=== PATIENT | male | born 1960 | race Caucasian/White ===

== ENCOUNTER 2017-03-20 20:39 | Inpatient (IN) | payer MEDICARE, OTHER ==
[~2017-03-20] VITALS: Ht 182.9 cm; Wt 127.0 kg
[2017-03-20 21:19] LABS: BASOPHILS 0.2 % (0-2); EOSINOPHILS 1.2 % (0-7); HEMATOCRIT 45.2 % (42.0-54.0); HEMOGLOBIN 15.7 g/dL (13.5-17.5); IMMATURE GRANULOCYTES 0.2 % (0-5); LYMPHOCYTES 15.7 % (15-50); MCH 30.5 pg (26.0-34.0); MCHC 34.7 g/dL (31.0-37.0); MCV 87.8 fL (80.0-100.0); MEAN PLATELET VOLUME 10.8 fL (7.4-10.4); MONOCYTES 6.6 % (2-11); NEUTROPHILS 76.1 % (40-80); PLATELET COUNT 228 10x3/uL (130-400); RBC 5.15 10x6/uL (4.20-6.10); RDW 12.7 % (11.5-14.5)
[2017-03-20 21:46] LABS: ALBUMIN 3.9 g/dL (3.4-5.0); BILIRUBIN - TOTAL 0.53 mg/dL (0.2-1.3); CALCIUM 9.2 mg/dL (8.5-10.1); CARBON DIOXIDE 26.5 mmol/L (21.0-32.0); CREATININE - SERUM 1.4 mg/dL (0.6-1.3); POTASSIUM - SERUM 3.5 mmol/L (3.5-5.1); PROTEIN - SERUM 8.3 g/dL (6.4-8.2)
--- NOTE | 2017-03-21 02:51 | NUR ---
REC'D FROM ER DEPT PER WC TO ROOM 2218 A 56 Y/O W/M PER SERVICES DR. PLATT WITH DX. PANCREATITIS NKDA. ALERT/ORIENTED X3 SALINE LOCK PATENT LEFT HAND. UP AD PHYLLIS TO BR VOIDS IN URINAL. SR UP X2 CALL LIGHT WITHIN REACH.
[2017-03-21 03:21] VITALS: BP 140/90; BMI 38.0
[2017-03-21] MEDS ORDERED: ZESTRIL20 MG PO (04:07)
[2017-03-21] MEDS ORDERED: BUSPAR10 MG PO (04:09)
[2017-03-21] MEDS ORDERED: CYMBALTA60 MG PO (04:09)
[2017-03-21] MEDS ORDERED: MOBIC7.5 MG PO (04:10)
[2017-03-21] MEDS ORDERED: ABILIFY10 MG PO (04:13)
[2017-03-21] MEDS ORDERED: VIAGRA100 MG PO (04:13)
[2017-03-21] MEDS ORDERED: REMERON15 MG PO (04:14)
[2017-03-21] MEDS ORDERED: SINEQUAN50 MG PO (04:14)
[2017-03-21] MEDS ORDERED: AMBIEN10 MG PO (04:15)
--- NOTE | 2017-03-21 04:34 | NUR ---
IV FLUIDS OF NS AT 150CC'S/HR C/O ABDOMINAL PAIN RATES PAIN LEVEL #8. DILAUDID 1MG IVP GIVEN FOR PAIN CONTROL.
--- NOTE | 2017-03-21 06:39 | NUR ---
RESTING QUIETLY DENIES NEEDS.
--- NOTE | 2017-03-21 08:00 | NUR ---
ASSESSMENT PER FLOW SHEET.PT WITHOUT DISTRESS AND DENIES NEEDS AT PRESENT.FAMILY IS AT BEDSIDE.CALL LIGHT IN REACH.
[2017-03-21 08:37] VITALS: BP 125/75
[2017-03-21] MEDS ORDERED: MELATONIN5 MG PO (10:10)
[2017-03-21 10:33] VITALS: Ht 182.9 cm; Wt 127.0 kg
[2017-03-21 10:44] LABS: BASOPHILS 0.1 % (0-2); HEMATOCRIT 41.5 % (42.0-54.0); HEMOGLOBIN 14.3 g/dL (13.5-17.5); IMMATURE GRANULOCYTES 0.2 % (0-5); LYMPHOCYTES 9.1 % (15-50); MCH 30.6 pg (26.0-34.0); MCHC 34.5 g/dL (31.0-37.0); MCV 88.7 fL (80.0-100.0); MEAN PLATELET VOLUME 10.1 fL (7.4-10.4); MONOCYTES 5.6 % (2-11); PLATELET COUNT 187 10x3/uL (130-400); RBC 4.68 10x6/uL (4.20-6.10); RDW 12.9 % (11.5-14.5); WBC 10.5 10x3/uL (4.8-10.8)
[2017-03-21 11:09] LABS: ALBUMIN 3.5 g/dL (3.4-5.0); ANION GAP 12.1 mmol/L (8-16); BILIRUBIN - TOTAL 0.6 mg/dL (0.2-1.3); CALCIUM 8.4 mg/dL (8.5-10.1); CARBON DIOXIDE 24.8 mmol/L (21.0-32.0); CREATININE - SERUM 1.2 mg/dL (0.6-1.3); POTASSIUM - SERUM 3.9 mmol/L (3.5-5.1); PROTEIN - SERUM 7.2 g/dL (6.4-8.2)
[2017-03-21 11:35] LABS: CHOL - HDL RATIO 4.6 ratio (2.3-4.9); LDL-HDL RATIO 3.2 ratio (1.5-3.5)
[2017-03-21 12:56] VITALS: BP 142/86
--- NOTE | 2017-03-21 13:55 | NUR ---
PAIN MEDS ORDERED PER SCALE TO ABDOMEN.MONITOR
--- NOTE | 2017-03-21 15:23 | NUR ---
PT UP IN ROOM AMBULATING. HE STATES HIS PAIN FEELS BETTER AND IS UP WALKING AROUND. MONITOR
--- NOTE | 2017-03-21 16:33 | NUR ---
REMAINS WITHOUT NEEDS,WITHOUT CHANGE.CONT PLAN OF CARE
[2017-03-21 16:48] VITALS: BP 126/81
--- NOTE | 2017-03-21 20:00 | NUR ---
ASSESSMENT PER FLOWSHEET. PT REMAINS NPO. IV PATENT LEFT HAND OF NS AT 150CC'S/HR. SITE CLEAR. UP AD PHYLLIS TO BR VOIDS WELL.
[2017-03-21 20:50] VITALS: BP 144/72
--- NOTE | 2017-03-21 22:00 | NUR ---
RESTING IN BED WITH PT'S OWN CPAP IN USE.
--- NOTE | 2017-03-21 23:47 | NUR ---
EYES CLOSED RESPIRATIONS WITH EASE AND UNLABORED.
[2017-03-22] VITALS: BP 132/75
--- NOTE | 2017-03-22 02:54 | NUR ---
EYES CLOSED RESPIRATIONS WITH EASE AND UNLABORED. PT USING HOME CPAP.
[2017-03-22 04:00] VITALS: BP 92/59
[2017-03-22 05:39] LABS: BASOPHILS 0.1 % (0-2); EOSINOPHILS 1.6 % (0-7); HEMATOCRIT 39.5 % (42.0-54.0); HEMOGLOBIN 13.1 g/dL (13.5-17.5); IMMATURE GRANULOCYTES 0.2 % (0-5); LYMPHOCYTES 11.5 % (15-50); MCHC 33.2 g/dL (31.0-37.0); MCV 90.4 fL (80.0-100.0); MEAN PLATELET VOLUME 10.9 fL (7.4-10.4); MONOCYTES 5.8 % (2-11); NEUTROPHILS 80.8 % (40-80); PLATELET COUNT 180 10x3/uL (130-400); RBC 4.37 10x6/uL (4.20-6.10); WBC 8.1 10x3/uL (4.8-10.8)
[2017-03-22 06:03] LABS: ANION GAP 9.8 mmol/L (8-16); BILIRUBIN - TOTAL 1.04 mg/dL (0.2-1.3); CARBON DIOXIDE 28.3 mmol/L (21.0-32.0); CREATININE - SERUM 1.3 mg/dL (0.6-1.3); POTASSIUM - SERUM 4.1 mmol/L (3.5-5.1); PROTEIN - SERUM 6.7 g/dL (6.4-8.2)
--- NOTE | 2017-03-22 08:00 | NUR ---
ASSESSMENT PER FLOW SHEET.PT WITHOUT DISTRESS.STATES SOME PAIN THIS AM AFTER GETTING OUT OF BED.STATES PAIN BETTER AND DID NOT NEEDS PAIN MEDS DURING NIGHT.PAIN MEDS PER MAR PER PT REQUEST FOR PAIN IN ABDOMEN.
[2017-03-22 08:55] VITALS: BP 149/70
--- NOTE | 2017-03-22 12:35 | NUR ---
UP TO BATHROOM. STATES HAVING LARGE BM PER .PT DECLINES SUPPOSITORIES ORDERED
[2017-03-22 13:25] VITALS: BP 136/76
[2017-03-22 16:46] VITALS: BP 137/75
--- NOTE | 2017-03-22 18:03 | NUR ---
REMAINS WITHOUT NEEDS.PAIN MEDS PER PT REQUEST PER MAR.CONT PLAN OF CARE
[2017-03-22 20:00] VITALS: BP 120/66
[2017-03-23] VITALS: BP 138/76
--- NOTE | 2017-03-23 01:43 | NUR ---
PATIENT IS LAYING ON HIS LEFT SIDE, RESTING QUIETLY WITH EYES CLOSED. NO SIGNS OF DISTRESS NOTED. BED IN LOWEST POSITION, CALL LIGHT IN REACH. BED RIALS UP X'S 2.
[2017-03-23 04:00] VITALS: BP 101/64
[2017-03-23 05:22] LABS: BASOPHILS 0.1 % (0-2); EOSINOPHILS 2.7 % (0-7); HEMATOCRIT 36.5 % (42.0-54.0); HEMOGLOBIN 12.2 g/dL (13.5-17.5); IMMATURE GRANULOCYTES 0.1 % (0-5); LYMPHOCYTES 15.4 % (15-50); MCHC 33.4 g/dL (31.0-37.0); MCV 89.9 fL (80.0-100.0); MEAN PLATELET VOLUME 10.6 fL (7.4-10.4); MONOCYTES 8.4 % (2-11); NEUTROPHILS 73.3 % (40-80); PLATELET COUNT 192 10x3/uL (130-400); RBC 4.06 10x6/uL (4.20-6.10); RDW 12.7 % (11.5-14.5); WBC 8.2 10x3/uL (4.8-10.8)
[2017-03-23 05:54] LABS: ALBUMIN 2.9 g/dL (3.4-5.0); ANION GAP 10.4 mmol/L (8-16); CALCIUM 8.4 mg/dL (8.5-10.1); CARBON DIOXIDE 28.5 mmol/L (21.0-32.0); CREATININE - SERUM 1.2 mg/dL (0.6-1.3); POTASSIUM - SERUM 3.9 mmol/L (3.5-5.1); PROTEIN - SERUM 6.6 g/dL (6.4-8.2)
--- NOTE | 2017-03-23 06:02 | NUR ---
DOCTOR NOT NOTIFIED THAT THERE WAS A CRITICL HIGH AMYLASE OF 633. THIS NUMBER WAS A DECREASE FROM 969 YESTERDAY MORNING.
--- NOTE | 2017-03-23 07:59 | NUR ---
REC'D LYING IN BED. ALERT AND ORIENTED X4. REPORTED PAIN 4/10. WILL ADMIN PAIN MEDS PRESCRIBED. IS WANTING TO GO HOME TODAY. INSTRUCTED TO CALL IF NEEDED ANYTHING, VERBALIZED UNDERSTANDING. NO DISTRESS NOTED. WILL CONT TO MONITOR.
[2017-03-23 09:13] VITALS: BP 115/68
--- NOTE | 2017-03-23 10:00 | NUR ---
AMBULATING IN HALLWAY. DENIES ANY NEEDS AT THIS TIME.
--- NOTE | 2017-03-23 12:12 | NUR ---
DISCHARGED PATIENT. WENT OF DISCHARGE PAPERWORK VERBLAIZED UNDERSTANDING. TOLD WHEN TO SCHEDULE APPT, VERBALIZED UNDERSTANDING. DC'D IV TO LEFT HAND, CATHETER STILL INTACT. REFUSED TO GO DOWNSTAIRS IN A WHEELCHAIR.
== END 2017-03-23 12:14 | disposition home or self-care (01) | DRG 439 ==
LOC: D.ER 20:39 → D.MS 03-21 01:34
PROVIDERS: Family Medicine; Nurse Practitioner Family; ADMIT Family Medicine
DX: K85.90 Acute pancreatitis without necrosis or infection, unspecified (principal); N17.9 Acute kidney failure, unspecified; I10 Essential (primary) hypertension; F43.10 Post-traumatic stress disorder, unspecified; G47.33 Obstructive sleep apnea (adult) (pediatric); Z98.84 Bariatric surgery status; G62.9 Polyneuropathy, unspecified

== ENCOUNTER → 2017-06-12 07:50 | Outpatient (CLI) | payer MEDICARE, OTHER ==
[2017-03-21 10:33] VITALS: BMI 38.0
[~2017-06-12 07:50] MED LIST: ABILIFY10 MG PO; AMBIEN10 MG PO; BUSPAR10 MG PO; CYMBALTA60 MG PO; MELATONIN5 MG PO; MOBIC7.5 MG PO; REMERON15 MG PO; SINEQUAN50 MG PO; VIAGRA100 MG PO; ZESTRIL20 MG PO
== END | disposition home or self-care (01) ==
LOC: D.RAD 07:50
DX: R13.10 Dysphagia, unspecified (principal)

== ENCOUNTER 2017-06-24 06:13 | Day surgery (SDC) | payer MEDICARE, OTHER ==
[2017-06-24 06:46] LABS: HEMATOCRIT 43.2 % (42.0-54.0); HEMOGLOBIN 14.8 g/dL (13.5-17.5); MCH 29.2 pg (26.0-34.0); MCHC 34.3 g/dL (31.0-37.0); MCV 85.2 fL (80.0-100.0); MEAN PLATELET VOLUME 10.5 fL (7.4-10.4); RBC 5.07 10x6/uL (4.20-6.10); RDW 13.2 % (11.5-14.5); WBC 6.8 10x3/uL (4.8-10.8)
[2017-06-24 06:58] VITALS: BP 138/80; BMI 37.1
== END 2017-06-24 09:30 | disposition home or self-care (01) ==
LOC: D.OPS 06:13
PROVIDERS: Anesthesiology
DX: R13.10 Dysphagia, unspecified (principal); K21.0 Gastro-esophageal reflux disease with esophagitis; K44.9 Diaphragmatic hernia without obstruction or gangrene; I10 Essential (primary) hypertension; G47.30 Sleep apnea, unspecified; Z01.812 Encounter for preprocedural laboratory examination

== ENCOUNTER 2018-02-05 16:13 | Inpatient (IN) | payer MEDICARE, OTHER ==
[~2018-02-05] VITALS: Ht 182.9 cm; Wt 126.4 kg
--- NOTE | ~2018-02-05 | MORECARE ---
CASE MANAGEMENT DISCHARGE SUMMARY PATIENT: CATHY VACA UNIT: [id number] ADM DATE: 02/05/18 AGE: 57 : 56 SEX: M ROOM/BED: D.1211 AUTHOR: LORRIE BLAKE PHYSICIAN: REFERRING PHYSICIAN: HIREN HOANG MD DATE OF SERVICE: 02/11/18 Discharge Plan Patient Name: CATHY VACA Facility: [facility]:[place] : 1960 Planned Disposition: Home Anticipated Discharge Date: 02/10/18 Discharge Date: 02/10/2018 Expected LOS: 5 Initial Reviewer: [email or web address] Initial Review Date: 02/10/2018 Generated: 02/11/18 2:08 pm Comments DCP- Discharge Planning Updated by [email or web address]: Lakia Zabala on 02/10/18 2:[address] Patient Name: CATHY VACA Admission Status: ER Accout number: [id number] Admission Date: 02-05-2018 : 1960 Admission Diagnosis:ACUTE PANCREATITIS WITHOUT NECROSIS OR INFECTION, UNSP Attending: HIREN HOANG Current LOS: 5 Anticipated DC Date: 02-10-2018 Planned Disposition: Home Primary Insurance: MEDICARE A & B Discharge Planning Comments: CM MET WITH PATIENT AND SPOUSE REGARDING DISCHARGE PLANNING. PATIENT DENIES ANY DISCHARGE NEEDS AT THIS TIME. IMM EXPLAINED AND SERVED @1430 . CM WILL FOLLOW AND ASSIST WITH DISCHARGE PLANNING / NEEDS Case Hardener: Lakia Zabala DCPIA - Discharge Planning Initial Assessment Updated by [email or web address]: Lakia Zabala on 02/10/18 3:08 pm * Is the patient Alert and Oriented? Yes * How many steps to enter\exit or inside your home? * PCP DR. PLATT * Pharmacy [facility] * Preadmission Environment Home with Family * ADLs Independent * Equipment CPAP * List name and contact numbers for known caregivers / representatives who currently or will assist patient after discharge: PÉREZ VACA - [phone] * Verbal permission to speak to the caregivers and representatives has been obtained from the patient. Yes * Community resources currently utilized None * Additional services required to return to the preadmission environment? No * Can the patient safely return to the preadmission environment? Yes * Has this patient been hospitalized within the prior 30 days at any hospital? No Coverage Notice Reviewer: [email or web address] Oli Zabala Notice Issued Date-Time: 02/10/2018 14:30 Notice Type: IM Discharge Notice Notice Delivered To: Patient Relationship to Patient: Self Farm Implement Mechanic Name: Delivery Method: HAND - Hand Delivered Shanika Days: Prior Verbal Notification: Recipient Understood Notice: Yes Recipient Signature: Yes Med Rec Note Co-signed by Attending: Coverage Notice Comment: Last DP export: 02/10/18 2:18 Patient Name: CATHY VACA Page 99125 at 1308 All edits/amendments must be made on the electronic document DICTATION DATE: 02/11/187 TITLE SUPERVISOR: KASSIDY 02/11/18 1307 RPT#: [id number] DC DATE:02/10/18 STATUS: DIS IN [facility] [address] [place] [address] END OF REPORT
--- NOTE | ~2018-02-05 | MORECARE ---
CASE MANAGEMENT DISCHARGE SUMMARY PATIENT: CATHY VACA UNIT: [id number] ADM DATE: 02/05/18 AGE: 57 : 56 SEX: M ROOM/BED: D.1211 AUTHOR: LORRIE BLAKE PHYSICIAN: REFERRING PHYSICIAN: HIREN HOANG MD DATE OF SERVICE: 02/10/18 Discharge Plan Patient Name: CATHY VACA Facility: [facility]:[place] : 1960 Planned Disposition: Home Anticipated Discharge Date: 02/10/18 Discharge Date: Expected LOS: 5 Initial Reviewer: [email or web address] Initial Review Date: 02/10/2018 Generated: 02/10/18 4:18 pm Comments DCP- Discharge Planning Updated by [email or web address]: Lakia Zabala on 02/10/18 2:[address] Patient Name: CATHY VACA Admission Status: ER Accout number: [id number] Admission Date: 02-05-2018 : 1960 Admission Diagnosis:ACUTE PANCREATITIS WITHOUT NECROSIS OR INFECTION, UNSP Attending: HIREN HOANG Current LOS: 5 Anticipated DC Date: 02-10-2018 Planned Disposition: Home Primary Insurance: MEDICARE A & B Discharge Planning Comments: CM MET WITH PATIENT AND SPOUSE REGARDING DISCHARGE PLANNING. PATIENT DENIES ANY DISCHARGE NEEDS AT THIS TIME. IMM EXPLAINED AND SERVED @1430 . CM WILL FOLLOW AND ASSIST WITH DISCHARGE PLANNING / NEEDS Cvt Tech: Lakia Zabala DCPIA - Discharge Planning Initial Assessment Updated by [email or web address]: Lakia Zabala on 02/10/18 3:08 pm * Is the patient Alert and Oriented? Yes * How many steps to enter\exit or inside your home? * PCP DR. PLATT * Pharmacy [facility] * Preadmission Environment Home with Family * ADLs Independent * Equipment CPAP * List name and contact numbers for known caregivers / representatives who currently or will assist patient after discharge: PÉREZ VACA - [phone] * Verbal permission to speak to the caregivers and representatives has been obtained from the patient. Yes * Community resources currently utilized None * Additional services required to return to the preadmission environment? No * Can the patient safely return to the preadmission environment? Yes * Has this patient been hospitalized within the prior 30 days at any hospital? No Coverage Notice Reviewer: [email or web address] Oli Zabala Notice Issued Date-Time: 02/10/2018 14:30 Notice Type: IM Discharge Notice Notice Delivered To: Patient Relationship to Patient: Self Acid Cleaner Name: Delivery Method: HAND - Hand Delivered Shanika Days: Prior Verbal Notification: Recipient Understood Notice: Yes Recipient Signature: Yes Med Rec Note Co-signed by Attending: Coverage Notice Comment: Last DP export: 02/10/18 2:07 Patient Name: CATHY VACA Page 18754 at 1518 All edits/amendments must be made on the electronic document DICTATION DATE: 02/10/181516 FRUIT GRADER: KASSIDY 02/10/181516 RPT#: [id number] DC DATE: STATUS: ADM IN [facility] [address] [place] [address] END OF REPORT
--- NOTE | ~2018-02-05 | MORECARE ---
CASE MANAGEMENT DISCHARGE SUMMARY PATIENT: CATHY VACA UNIT: [id number] ADM DATE: 02/05/18 AGE: 57 : 56 SEX: M ROOM/BED: D.1211 AUTHOR: LORRIE BLAKE PHYSICIAN: REFERRING PHYSICIAN: HIREN HOANG MD DATE OF SERVICE: 02/10/18 Discharge Plan Patient Name: CATHY VACA Facility: [facility]:[place] : 1960 Planned Disposition: Home Anticipated Discharge Date: 02/10/18 Discharge Date: Expected LOS: 5 Initial Reviewer: [email or web address] Initial Review Date: 02/10/2018 Generated: 02/10/18 4:07 pm Patient Name: CATHY VACA Page 12342 at 1507 All edits/amendments must be made on the electronic document DICTATION DATE: 02/10/18 1506 LACQUER SHADER: KASSIDY 02/10/18 1506 RPT#: [id number] DC DATE: STATUS: ADM IN [facility] [address] [place] [address] END OF REPORT
[2018-02-05] MEDS ORDERED: LITHOBID 300 M300 MG PO (16:33)
[2018-02-05 17:12] LABS: BASOPHILS 0.1 % (0-2); EOSINOPHILS 0.1 % (0-7); HEMATOCRIT 45.9 % (42.0-54.0); HEMOGLOBIN 16.1 g/dL (13.5-17.5); IMMATURE GRANULOCYTES 0.3 % (0-5); LYMPHOCYTES 3.7 % (15-50); MCH 30.7 pg (26.0-34.0); MCHC 35.1 g/dL (31.0-37.0); MCV 87.6 fL (80.0-100.0); MEAN PLATELET VOLUME 10.6 fL (7.4-10.4); MONOCYTES 2.5 % (2-11); NEUTROPHILS 93.3 % (40-80); PLATELET COUNT 258 10x3/uL (130-400); RBC 5.24 10x6/uL (4.20-6.10); RDW 13.2 % (11.5-14.5)
[2018-02-05 17:24] LABS: APPEARANCE CLEAR (CLEAR); BILIRUBIN NEGATIVE (NEGATIVE); COLOR YELLOW (YELLOW); GLUCOSE NEGATIVE (NEGATIVE); KETONE MODERATE mg/dL (NEGATIVE); NITRITE NEGATIVE (NEGATIVE); PROTEIN NEGATIVE (NEGATIVE); SPECIFIC GRAVITY 1.025 (1.005-1.020); UROBILINOGEN NORMAL (NORMAL)
[2018-02-05 17:33] LABS: ALBUMIN 4.2 g/dL (3.4-5.0); ALKALINE PHOSPHATASE 60 U/L (46-116); ALT (SGPT) 30 U/L (10-68); BILIRUBIN - TOTAL 0.85 mg/dL (0.2-1.3); CALC OSMOLALITY 273 mosm/kg (275-300); CARBON DIOXIDE 25.2 mmol/L (21.0-32.0); CHLORIDE - SERUM 100 mmol/L (98-107); CREATININE - SERUM 1.3 mg/dL (0.6-1.3); PROTEIN - SERUM 8.3 g/dL (6.4-8.2); SODIUM 135 mmol/L (136-145); UREA NITROGEN 16 mg/dL (7-18); eGFR NON AFRICAN AMERICAN 60 mL/min (90-120)
[2018-02-05 17:35] LABS: GLUCOSE 161 mg/dL (74-106)
[2018-02-05 17:45] LABS: CKMB 1.1 U/L (0.0-3.6); CREATINE KINASE 146 UL (21-232); TROPONIN-I < 0.017 ng/mL (0.000-0.060)
[2018-02-05 17:48] LABS: AMYLASE - SERUM 1461 U/L (25-115); LIPASE 5518 U/L (73-393)
[2018-02-05 21:15] VITALS: BP 171/89
[2018-02-05 23:49] VITALS: BP 171/89; BMI 39.4
[2018-02-06] VITALS (7 sets, daily range): BP systolic 137–163; BP diastolic 74–99; Ht 182.9 cm; Wt 126.4 kg
[2018-02-06 05:58] LABS: BASOPHILS 0.1 % (0-2); EOSINOPHILS 0.1 % (0-7); HEMATOCRIT 47.1 % (42.0-54.0); HEMOGLOBIN 16.5 g/dL (13.5-17.5); IMMATURE GRANULOCYTES 0.2 % (0-5); LYMPHOCYTES 5.4 % (15-50); MCV 88.4 fL (80.0-100.0); MEAN PLATELET VOLUME 10.6 fL (7.4-10.4); MONOCYTES 6.2 % (2-11); PLATELET COUNT 261 10x3/uL (130-400); RBC 5.33 10x6/uL (4.20-6.10); RDW 13.6 % (11.5-14.5)
[2018-02-06 06:13] LABS: ALBUMIN 3.9 g/dL (3.4-5.0); ANION GAP 14.5 mmol/L (8-16); CALCIUM 9.2 mg/dL (8.5-10.1); CARBON DIOXIDE 26.3 mmol/L (21.0-32.0); CREATININE - SERUM 1.2 mg/dL (0.6-1.3); POTASSIUM - SERUM 3.8 mmol/L (3.5-5.1); PROTEIN - SERUM 7.9 g/dL (6.4-8.2)
[2018-02-06] MEDS ORDERED: MOBIC7.5 MG PO (19:27)
[2018-02-06] MEDS ORDERED: NORVASC10 MG PO (19:28)
[2018-02-07 04:00] VITALS: BP 167/95
[2018-02-07 06:16] LABS: BASOPHILS 0.1 % (0-2); EOSINOPHILS 0.2 % (0-7); HEMATOCRIT 41.5 % (42.0-54.0); HEMOGLOBIN 14.3 g/dL (13.5-17.5); IMMATURE GRANULOCYTES 0.4 % (0-5); LYMPHOCYTES 6.5 % (15-50); MCH 30.9 pg (26.0-34.0); MCHC 34.5 g/dL (31.0-37.0); MCV 89.6 fL (80.0-100.0); MEAN PLATELET VOLUME 10.8 fL (7.4-10.4); MONOCYTES 6.4 % (2-11); NEUTROPHILS 86.4 % (40-80); PLATELET COUNT 226 10x3/uL (130-400); RBC 4.63 10x6/uL (4.20-6.10); RDW 13.6 % (11.5-14.5); WBC 17.7 10x3/uL (4.8-10.8)
[2018-02-07 06:44] LABS: ALBUMIN 3.1 g/dL (3.4-5.0); ALKALINE PHOSPHATASE 48 U/L (46-116); BILIRUBIN - TOTAL 1.59 mg/dL (0.2-1.3); CALC OSMOLALITY 272 mosm/kg (275-300); CALCIUM 8.6 mg/dL (8.5-10.1); CARBON DIOXIDE 27.6 mmol/L (21.0-32.0); CHLORIDE - SERUM 101 mmol/L (98-107); GLUCOSE 128 mg/dL (74-106); LIPASE 906 U/L (73-393); MAGNESIUM - SERUM 1.9 mg/dL (1.8-2.4); POTASSIUM - SERUM 3.4 mmol/L (3.5-5.1); PROTEIN - SERUM 6.9 g/dL (6.4-8.2); SODIUM 136 mmol/L (136-145); UREA NITROGEN 11 mg/dL (7-18); eGFR NON AFRICAN AMERICAN 81 mL/min (90-120)
[2018-02-07 06:45] LABS: ALT (SGPT) 15 U/L (10-68)
[2018-02-07 06:46] LABS: AMYLASE - SERUM 567 U/L (25-115)
[2018-02-07 08:09] VITALS: BP 132/70
[2018-02-07 19:25] VITALS: BP 160/86
[2018-02-08 00:32] VITALS: BP 151/91
[2018-02-08 04:45] VITALS: BP 149/89
[2018-02-08 06:27] LABS: BASOPHILS 0.2 % (0-2); EOSINOPHILS 1.4 % (0-7); HEMATOCRIT 40.6 % (42.0-54.0); HEMOGLOBIN 13.9 g/dL (13.5-17.5); IMMATURE GRANULOCYTES 0.2 % (0-5); LYMPHOCYTES 8.2 % (15-50); MCH 30.8 pg (26.0-34.0); MCHC 34.2 g/dL (31.0-37.0); MCV 89.8 fL (80.0-100.0); MEAN PLATELET VOLUME 10.6 fL (7.4-10.4); MONOCYTES 7.8 % (2-11); NEUTROPHILS 82.2 % (40-80); PLATELET COUNT 210 10x3/uL (130-400); RBC 4.52 10x6/uL (4.20-6.10); RDW 13.5 % (11.5-14.5); WBC 13.9 10x3/uL (4.8-10.8)
[2018-02-08 06:48] LABS: ALKALINE PHOSPHATASE 51 U/L (46-116); ALT (SGPT) 18 U/L (10-68); BILIRUBIN - TOTAL 1.07 mg/dL (0.2-1.3); CALC OSMOLALITY 276 mosm/kg (275-300); CARBON DIOXIDE 26.7 mmol/L (21.0-32.0); CHLORIDE - SERUM 101 mmol/L (98-107); GLUCOSE 126 mg/dL (74-106); LIPASE 378 U/L (73-393); PROTEIN - SERUM 7.4 g/dL (6.4-8.2); SODIUM 138 mmol/L (136-145); UREA NITROGEN 9 mg/dL (7-18); eGFR NON AFRICAN AMERICAN 81 mL/min (90-120)
[2018-02-08 06:58] LABS: AMYLASE - SERUM 385 U/L (25-115); POTASSIUM - SERUM 4.1 mmol/L (3.5-5.1)
[2018-02-08 07:23] VITALS: BP 142/92
[2018-02-08 11:02] VITALS: BP 149/92
[2018-02-08 19:05] VITALS: BP 139/80
[2018-02-08 22:59] VITALS: BP 142/76
[2018-02-09 02:59] VITALS: BP 153/76
[2018-02-09 05:52] LABS: BASOPHILS 0.2 % (0-2); HEMATOCRIT 39.3 % (42.0-54.0); HEMOGLOBIN 13.4 g/dL (13.5-17.5); IMMATURE GRANULOCYTES 0.3 % (0-5); LYMPHOCYTES 10.8 % (15-50); MCH 30.4 pg (26.0-34.0); MCHC 34.1 g/dL (31.0-37.0); MCV 89.1 fL (80.0-100.0); MEAN PLATELET VOLUME 10.7 fL (7.4-10.4); MONOCYTES 8.7 % (2-11); PLATELET COUNT 219 10x3/uL (130-400); RBC 4.41 10x6/uL (4.20-6.10); RDW 13.2 % (11.5-14.5); WBC 12.3 10x3/uL (4.8-10.8)
[2018-02-09 06:34] LABS: ALBUMIN 2.9 g/dL (3.4-5.0); ALKALINE PHOSPHATASE 63 U/L (46-116); BILIRUBIN - TOTAL 1.08 mg/dL (0.2-1.3); CARBON DIOXIDE 27.1 mmol/L (21.0-32.0); CHLORIDE - SERUM 100 mmol/L (98-107); GLUCOSE 114 mg/dL (74-106); LIPASE 337 U/L (73-393); POTASSIUM - SERUM 3.7 mmol/L (3.5-5.1); PROTEIN - SERUM 7.4 g/dL (6.4-8.2); SODIUM 137 mmol/L (136-145); eGFR NON AFRICAN AMERICAN 81 mL/min (90-120)
[2018-02-09 06:45] VITALS: BP 127/69
[2018-02-09 06:48] LABS: ALT (SGPT) 26 U/L (10-68); AMYLASE - SERUM 373 U/L (25-115); CALC OSMOLALITY 274 mosm/kg (275-300); UREA NITROGEN 12 mg/dL (7-18)
[2018-02-09 11:10] VITALS: BP 146/91
[2018-02-09 14:59] VITALS: BP 137/74
[2018-02-09 19:56] VITALS: BP 148/80
[2018-02-09 23:34] VITALS: BP 150/89; BP 189/89
[2018-02-10 03:57] VITALS: BP 135/82
[2018-02-10 06:18] LABS: BASOPHILS 0.2 % (0-2); HEMOGLOBIN 13.2 g/dL (13.5-17.5); IMMATURE GRANULOCYTES 0.5 % (0-5); LYMPHOCYTES 12.6 % (15-50); MCH 30.3 pg (26.0-34.0); MCHC 34.7 g/dL (31.0-37.0); MCV 87.4 fL (80.0-100.0); MEAN PLATELET VOLUME 10.9 fL (7.4-10.4); MONOCYTES 9.1 % (2-11); NEUTROPHILS 74.6 % (40-80); RBC 4.35 10x6/uL (4.20-6.10); RDW 13.1 % (11.5-14.5); WBC 10.9 10x3/uL (4.8-10.8)
[2018-02-10 06:21] LABS: PLATELET COUNT 278 10x3/uL (130-400)
[2018-02-10 06:40] LABS: ALBUMIN 2.9 g/dL (3.4-5.0); ALKALINE PHOSPHATASE 68 U/L (46-116); ALT (SGPT) 53 U/L (10-68); BILIRUBIN - TOTAL 0.98 mg/dL (0.2-1.3); CALC OSMOLALITY 276 mosm/kg (275-300); CALCIUM 8.9 mg/dL (8.5-10.1); CARBON DIOXIDE 23.7 mmol/L (21.0-32.0); CHLORIDE - SERUM 99 mmol/L (98-107); GLUCOSE 129 mg/dL (74-106); LIPASE 652 U/L (73-393); POTASSIUM - SERUM 3.1 mmol/L (3.5-5.1); PROTEIN - SERUM 7.2 g/dL (6.4-8.2); SODIUM 137 mmol/L (136-145); UREA NITROGEN 14 mg/dL (7-18); eGFR NON AFRICAN AMERICAN 81 mL/min (90-120)
[2018-02-10 06:41] LABS: AMYLASE - SERUM 373 U/L (25-115)
[2018-02-10 07:32] VITALS: BP 118/63
[2018-02-10] MEDS ORDERED: LEVAQUIN750 MG PO (09:52)
[2018-02-10 11:18] VITALS: BP 137/89
== END 2018-02-10 16:17 | disposition home or self-care (01) | DRG 439 ==
LOC: D.ER 16:13 → D.M3 19:03
PROVIDERS: Emergency Medicine; Family Medicine; Internal Medicine Gastroenterology
DX: K85.00 Idiopathic acute pancreatitis without necrosis or infection (principal); N17.9 Acute kidney failure, unspecified; D72.829 Elevated white blood cell count, unspecified; G47.33 Obstructive sleep apnea (adult) (pediatric); I10 Essential (primary) hypertension; F32.9 Major depressive disorder, single episode, unspecified; K86.1 Other chronic pancreatitis; D64.9 Anemia, unspecified; E87.6 Hypokalemia; F43.10 Post-traumatic stress disorder, unspecified

== ENCOUNTER 2019-08-05 19:50 | Inpatient (IN) | payer MEDICARE, OTHER ==
[~2019-08-05] VITALS: Ht 182.9 cm; Wt 124.7 kg
[~2019-08-05 19:50] MED LIST changes: +LEVAQUIN750 MG PO; +LITHOBID 300 M300 MG PO; +NORVASC10 MG PO
[2019-08-05] MEDS ORDERED: TOPROL XL25 MG PO (20:01)
[2019-08-05] MEDS ORDERED: PAROXETINE HCL10 MG PO (20:01)
[2019-08-05 20:31] LABS: BASOPHILS 0.2 % (0-2); EOSINOPHILS 0.7 % (0-7); HEMOGLOBIN 16.3 g/dL (13.5-17.5); IMMATURE GRANULOCYTES 0.3 % (0-5); LYMPHOCYTES 13.2 % (15-50); MCH 29.9 pg (26.0-34.0); MCHC 33.3 g/dL (31.0-37.0); MCV 89.9 fL (80.0-100.0); MEAN PLATELET VOLUME 10.6 fL (7.4-10.4); MONOCYTES 6.8 % (2-11); NEUTROPHILS 78.8 % (40-80); PLATELET COUNT 234 10x3/uL (130-400); RBC 5.45 10x6/uL (4.20-6.10); RDW 12.8 % (11.5-14.5); WBC 10.3 10x3/uL (4.8-10.8)
[2019-08-05 20:44] LABS: CALC OSMOLALITY 274 mosm/kg (275-300); CALCIUM 9.4 mg/dL (8.5-10.1); CHLORIDE - SERUM 102 mmol/L (98-107); CREATININE - SERUM 1.3 mg/dL (0.6-1.3); GLUCOSE 118 mg/dL (74-106); POTASSIUM - SERUM 4.1 mmol/L (3.5-5.1); SODIUM 136 mmol/L (136-145); UREA NITROGEN 17 mg/dL (7-18); eGFR NON AFRICAN AMERICAN 60 mL/min (90-120)
[2019-08-05 20:57] LABS: ALBUMIN 4.2 g/dL (3.4-5.0); ALKALINE PHOSPHATASE 58 U/L (30-120); ALT (SGPT) 28 U/L (10-68); BILIRUBIN - TOTAL 1.26 mg/dL (0.2-1.3); PROTEIN - SERUM 8.1 g/dL (6.4-8.2)
[2019-08-05 20:57] LABS: BILIRUBIN NEGATIVE (NEGATIVE); GLUCOSE NEGATIVE (NEGATIVE); KETONE NEGATIVE (NEGATIVE); NITRITE NEGATIVE (NEGATIVE); SPECIFIC GRAVITY 1.015 (1.005-1.020); UROBILINOGEN NORMAL (NORMAL)
[2019-08-05 21:01] LABS: LIPASE 4918 U/L (73-393); TROPONIN-I < 0.017 ng/mL (0.000-0.060)
[2019-08-05 21:02] LABS: AMYLASE - SERUM 1023 U/L (25-115)
--- NOTE | 2019-08-06 | NUR ---
A&O X 4, AMBULATES AD PHYLLIS, DENIES N/V. REPORTS CHRONIC PAIN ALL OVER. SPRITE AND POPSICLES GIVEN, NO FURTHER NEEDS AT THIS TIME, WILL CONTINUE TO MONITOR.
[2019-08-06 00:16] VITALS: BP 153/84; BMI 37.4
[2019-08-06 04:07] LABS: BASOPHILS 0.1 % (0-2); EOSINOPHILS 1.2 % (0-7); HEMATOCRIT 47.2 % (42.0-54.0); HEMOGLOBIN 15.2 g/dL (13.5-17.5); IMMATURE GRANULOCYTES 0.2 % (0-5); LYMPHOCYTES 16.4 % (15-50); MCH 29.5 pg (26.0-34.0); MCHC 32.2 g/dL (31.0-37.0); MCV 91.5 fL (80.0-100.0); MEAN PLATELET VOLUME 10.5 fL (7.4-10.4); MONOCYTES 5.1 % (2-11); PLATELET COUNT 240 10x3/uL (130-400); RBC 5.16 10x6/uL (4.20-6.10); RDW 12.8 % (11.5-14.5); WBC 11.3 10x3/uL (4.8-10.8)
[2019-08-06 04:29] LABS: ALBUMIN 4.1 g/dL (3.4-5.0); ANION GAP 13.4 mmol/L (8-16); BILIRUBIN - TOTAL 1.13 mg/dL (0.2-1.3); CALCIUM 8.9 mg/dL (8.5-10.1); CARBON DIOXIDE 26.6 mmol/L (21.0-32.0); CREATININE - SERUM 1.3 mg/dL (0.6-1.3); MAGNESIUM - SERUM 2.3 mg/dL (1.8-2.4); PHOSPHOROUS 3.8 mg/dL (2.5-4.9); PROTEIN - SERUM 7.8 g/dL (6.4-8.2)
--- NOTE | 2019-08-06 07:45 | NUR ---
PT SITTING UP IN CHAIR AT BEDSIDE. RESP EVEN AND UNLABORED. REPORTS PAIN 7/10 AT THIS TIME. DISCUSSED NEXT TIME PAIN MED COULD BE ADMINISTERED PER MD ORDERS. PT VOICES UNDERSTANDING. IV TO RIGHT AC WITH NS @ 125ML/HR INFUSING VIA PUMP. SITE WITHOUT REDNESS OR EDEMA. DENIES FURTHER NEEDS AT THIS TIME. CL WITHIN REACH. ENCOURAGED TO CALL WITH NEEDS. CONTINUE POC
[2019-08-06 09:13] VITALS: BP 146/86
[2019-08-06 10:46] LABS: LIPASE 5011 U/L (73-393)
[2019-08-06 10:47] LABS: AMYLASE - SERUM 874 U/L (25-115)
[2019-08-06 12:36] VITALS: BP 158/97
[2019-08-06 16:47] VITALS: BP 146/59
[2019-08-06 20:00] VITALS: BP 146/87
[2019-08-07] VITALS (10 sets, daily range): BP systolic 107–150; BP diastolic 64–85; Ht 182.9 cm; Wt 124.7 kg
--- NOTE | 2019-08-07 02:28 | NUR ---
I have reviewed this patient and I concur with the Shift Assessment completed by the Licensed Practical Nurse today this shift.
[2019-08-07 06:24] LABS: BASOPHILS 0.2 % (0-2); EOSINOPHILS 2.7 % (0-7); HEMATOCRIT 40.2 % (42.0-54.0); HEMOGLOBIN 13.2 g/dL (13.5-17.5); IMMATURE GRANULOCYTES 0.1 % (0-5); LYMPHOCYTES 14.7 % (15-50); MCH 29.9 pg (26.0-34.0); MCHC 32.8 g/dL (31.0-37.0); MCV 91.2 fL (80.0-100.0); MEAN PLATELET VOLUME 10.7 fL (7.4-10.4); MONOCYTES 8.2 % (2-11); NEUTROPHILS 74.1 % (40-80); PLATELET COUNT 225 10x3/uL (130-400); RBC 4.41 10x6/uL (4.20-6.10); WBC 10.3 10x3/uL (4.8-10.8)
[2019-08-07 07:07] LABS: ALBUMIN 3.6 g/dL (3.4-5.0); ANION GAP 11.6 mmol/L (8-16); BILIRUBIN - TOTAL 1.8 mg/dL (0.2-1.3); CALCIUM 8.2 mg/dL (8.5-10.1); CARBON DIOXIDE 26.3 mmol/L (21.0-32.0); CHOL - HDL RATIO 3.5 ratio (2.3-4.9); CREATININE - SERUM 1.1 mg/dL (0.6-1.3); MAGNESIUM - SERUM 1.9 mg/dL (1.8-2.4); POTASSIUM - SERUM 3.9 mmol/L (3.5-5.1); PROTEIN - SERUM 6.7 g/dL (6.4-8.2)
[2019-08-07 07:14] LABS: PHOSPHOROUS 2.8 mg/dL (2.5-4.9)
[2019-08-07 07:18] LABS: APTT 36.6 SECONDS (22.8-39.4)
[2019-08-07 07:19] LABS: INR 1.12 (0.85-1.17); PROTIME 14.4 SECONDS (11.6-15.0)
--- NOTE | 2019-08-07 23:40 | NUR ---
MORPHINE NOT CONTROLLING PT'S PAIN LONG ENOUGH. INITIATED DILAUDID REINFORCING STEEL ERECTOR AND INSTRUCTED PT ON USE. GAVE PT BEGINNING BOLUS OF 0.4 MG. PT REPORTS PASSING GAS. WILL REASSESS AND CONTINUE TO MONITOR.
[2019-08-08 00:56] VITALS: BP 114/69
[2019-08-08 03:00] VITALS: BP 125/79
[2019-08-08 07:00] LABS: BASOPHILS 0.3 % (0-2); EOSINOPHILS 2.2 % (0-7); HEMATOCRIT 38.9 % (42.0-54.0); HEMOGLOBIN 12.7 g/dL (13.5-17.5); IMMATURE GRANULOCYTES 0.2 % (0-5); LYMPHOCYTES 15.6 % (15-50); MCHC 32.6 g/dL (31.0-37.0); MCV 91.7 fL (80.0-100.0); MEAN PLATELET VOLUME 10.5 fL (7.4-10.4); MONOCYTES 9.8 % (2-11); NEUTROPHILS 71.9 % (40-80); PLATELET COUNT 217 10x3/uL (130-400); RBC 4.24 10x6/uL (4.20-6.10); RDW 13.2 % (11.5-14.5); WBC 9.9 10x3/uL (4.8-10.8)
[2019-08-08 07:27] LABS: ALBUMIN 3.4 g/dL (3.4-5.0); ANION GAP 13.8 mmol/L (8-16); BILIRUBIN - TOTAL 2.45 mg/dL (0.2-1.3); CALCIUM 8.3 mg/dL (8.5-10.1); CARBON DIOXIDE 25.8 mmol/L (21.0-32.0); CREATININE - SERUM 1.2 mg/dL (0.6-1.3); PHOSPHOROUS 2.5 mg/dL (2.5-4.9); POTASSIUM - SERUM 3.6 mmol/L (3.5-5.1); PROTEIN - SERUM 7.3 g/dL (6.4-8.2)
[2019-08-08 08:00] VITALS: BP 113/66
[2019-08-08 08:45] VITALS: BP 135/78
--- NOTE | 2019-08-08 10:26 | NUR ---
PATIENT UP AMBULATING IN HALLWAY. STATES IS STILL USING DILAUDID COUNTER HAND. ABDOMEN GUARDED AND DISTENDED WITH BOWEL SOUNDS HYPOACTIVE. STATES IS HAVING FLATULANCE. TELEMETRY INTACT AND DENIES ANY CHEST PAIN OR DISCOMFORT OR FAMILY HISTORY. IV TO RT. A/C AND INFUSING AT PRESCRIBED RATE WITH NO S/S OF INFECTION/INFILTTRATION. ENCOURAGED TO USE CALL LIGHT FOR ASSIT.
[2019-08-08 10:39] LABS: AMYLASE - SERUM 272 U/L (25-115); LIPASE 281 U/L (73-393)
[2019-08-08 12:00] VITALS: BP 130/71
[2019-08-09] VITALS: BP 110/58
[2019-08-09 04:00] VITALS: BP 112/76
[2019-08-09 07:11] LABS: ANION GAP 12.1 mmol/L (8-16); BILIRUBIN - TOTAL 1.03 mg/dL (0.2-1.3); CALCIUM 8.5 mg/dL (8.5-10.1); CARBON DIOXIDE 26.6 mmol/L (21.0-32.0); CREATININE - SERUM 1.1 mg/dL (0.6-1.3); MAGNESIUM - SERUM 2.1 mg/dL (1.8-2.4); PHOSPHOROUS 2.6 mg/dL (2.5-4.9); POTASSIUM - SERUM 3.7 mmol/L (3.5-5.1); PROTEIN - SERUM 6.9 g/dL (6.4-8.2)
[2019-08-09 07:30] LABS: BASOPHILS 0.4 % (0-2); EOSINOPHILS 3.7 % (0-7); HEMATOCRIT 36.6 % (42.0-54.0); HEMOGLOBIN 12.3 g/dL (13.5-17.5); IMMATURE GRANULOCYTES 0.1 % (0-5); LYMPHOCYTES 13.7 % (15-50); MCHC 33.6 g/dL (31.0-37.0); MCV 89.3 fL (80.0-100.0); MEAN PLATELET VOLUME 10.1 fL (7.4-10.4); MONOCYTES 9.1 % (2-11); PLATELET COUNT 187 10x3/uL (130-400); RDW 12.6 % (11.5-14.5); WBC 7.9 10x3/uL (4.8-10.8)
[2019-08-09 09:00] VITALS: BP 142/69
[2019-08-09] MEDS ORDERED: HYDROCODON-ACE1 EA10 PO (11:24)
--- NOTE | 2019-08-09 11:58 | NUR ---
PATIENT VERBALIZED UNDERSTANDING OF DISCHARGE INSTRUCTIONS AND STABLE AT TIME OF DEPARTURE. IV DISCONTINUED PRIOR TO DISCHARGE.
--- NOTE | 2019-08-09 12:09 | MORECARE ---
CASE MANAGEMENT DISCHARGE SUMMARY PATIENT: CATHY VACA UNIT: [id number] ADM DATE: 08/05/19 AGE: 58 : 56 SEX: M ROOM/BED: D.2205 AUTHOR: LORRIE BLAKE PHYSICIAN: REFERRING PHYSICIAN: GIGI PLATT MD DATE OF SERVICE: 08/09/19 Discharge Plan Patient Name: CATHY VACA Facility: [facility]:[place] : 1960 Planned Disposition: Home Anticipated Discharge Date: 08/09/19 Discharge Date: 08/09/2019 Expected LOS: 4 Initial Reviewer: [email or web address] Initial Review Date: 08/05/2019 Generated: 08/09/19 1:08 pm Comments DCP- Discharge Planning Updated by [email or web address]: Ryann Carrasco on 08/09/19 11:[address] DC IMM signed. CM met with patient regarding DC needs. PCP: Dr. Platt. Pharmacy: [facility]. : Chely Vaca #[phone], will transport home. Patient states he is independent with ADL's, 4 steps w/rails entering home. D[place]. Denies need for HHS, Rehab, Skilled services. Denies being hospitalized within past 30 days and feels safe returning to his home with his . Patient Name: CATHY VACA Page 21608 at 1209 All edits/amendments must be made on the electronic document DICTATION DATE: 08/09/191207 MOTION PICTURE NARRATOR: KASSIDY 08/09/191207 RPT#: [id number] DC DATE:08/09/19 STATUS: DIS IN [facility] [address] [place] [address] END OF REPORT
--- NOTE | 2019-08-09 12:16 | MORECARE ---
CASE MANAGEMENT DISCHARGE SUMMARY PATIENT: CATHY VACA UNIT: [id number] ADM DATE: 08/05/19 AGE: 58 : 56 SEX: M ROOM/BED: D.2205 AUTHOR: LORRIE BLAKE PHYSICIAN: REFERRING PHYSICIAN: GIGI PLATT MD DATE OF SERVICE: 08/09/19 Discharge Plan Patient Name: CATHY VACA Facility: [facility]:[place] : 1960 Planned Disposition: Home Anticipated Discharge Date: 08/09/19 Discharge Date: 08/09/2019 Expected LOS: 4 Initial Reviewer: [email or web address] Initial Review Date: 08/05/2019 Generated: 08/09/19 1:15 pm Comments DCP- Discharge Planning Updated by [email or web address]: Ryann Carrasco on 08/09/19 11:[address] DC IMM signed. CM met with patient regarding DC needs. PCP: Dr. Platt. Pharmacy: [facility]. : Chely Vaca #[phone], will transport home. Patient states he is independent with ADL's, 4 steps w/rails entering home. DME[place]AP[place]. Denies need for HHS, Rehab, Skilled services. Denies being hospitalized within past 30 days and feels safe returning to his home with his . DCPIA - Discharge Planning Initial Assessment Updated by [email or web address]: Ryann Carrasco on 08/09/19 12:09 pm * Is the patient Alert and Oriented? Yes * How many steps to enter\exit or inside your home? 4 w/rails * PCP Dr. Platt * Pharmacy [email or web address] * Preadmission Environment Home with Family * ADLs Independent * Equipment CPAP * Other Equipment C-PAP [place] * List name and contact numbers for known caregivers / representatives who currently or will assist patient after discharge: Chely christensen #[phone] * Verbal permission to speak to the caregivers and representatives has been obtained from the patient. Yes * Community resources currently utilized None * Please name any agencies selected above. NA * Additional services required to return to the preadmission environment? No * Can the patient safely return to the preadmission environment? Yes * Has this patient been hospitalized within the prior 30 days at any hospital? No Last DP export: 08/09/19 11:09 a Patient Name: CATHY VACA Page 75736 at 1216 All edits/amendments must be made on the electronic document DICTATION DATE: 08/09/191214 STOVE CARRIAGE OPERATOR: KASSIDY 08/09/195 RPT#: [id number] DC DATE:08/09/19 STATUS: DIS IN [facility] [address] [place] [address] END OF REPORT
--- NOTE | 2019-08-09 16:00 | MORECARE ---
CASE MANAGEMENT DISCHARGE SUMMARY PATIENT: CATHY VACA UNIT: [id number] ADM DATE: 08/05/19 AGE: 58 : 56 SEX: M ROOM/BED: D.2205 AUTHOR: LORRIE BLAKE PHYSICIAN: REFERRING PHYSICIAN: GIGI PLATT MD DATE OF SERVICE: 08/09/19 Discharge Plan Patient Name: CATHY VACA Facility: [facility]:[place] : 1960 Planned Disposition: Home Anticipated Discharge Date: 08/09/19 Discharge Date: 08/09/2019 Expected LOS: 4 Initial Reviewer: [email or web address] Initial Review Date: 08/05/2019 Generated: 08/09/19 5:00 pm Comments DCP- Discharge Planning Updated by [email or web address]: Ryann Carrasco on 08/09/19 11:[address] DC IMM signed. CM met with patient regarding DC needs. PCP: Dr. Platt. Pharmacy: [facility]. : Chely Vaca #[phone], will transport home. Patient states he is independent with ADL's, 4 steps w/rails entering home. DME: [place]AP, [place]. Denies need for HHS, Rehab, Skilled services. Denies being hospitalized within past 30 days and feels safe returning to his home with his . DCPIA - Discharge Planning Initial Assessment Updated by [email or web address]: Ryann Carrasco on 08/09/19 12:09 pm * Is the patient Alert and Oriented? Yes * How many steps to enter\exit or inside your home? 4 w/rails * PCP Dr. Platt * Pharmacy [facility] * Preadmission Environment Home with Family * ADLs Independent * Equipment CPAP * Other Equipment C-PAP [facility] * List name and contact numbers for known caregivers / representatives who currently or will assist patient after discharge: Chely christensen #[phone] * Verbal permission to speak to the caregivers and representatives has been obtained from the patient. Yes * Community resources currently utilized None * Please name any agencies selected above. NA * Additional services required to return to the preadmission environment? No * Can the patient safely return to the preadmission environment? Yes * Has this patient been hospitalized within the prior 30 days at any hospital? No Last DP export: 08/09/19 11:16 a Patient Name: CATHY VACA Page 16240 at 1600 All edits/amendments must be made on the electronic document DICTATION DATE: 08/09/19 1600 PROFESSIONAL SECURITY OFFICER: KASSIDY 08/09/19 1600 RPT#: [id number] DC DATE:08/09/19 STATUS: DIS IN [facility] [address] [place] [address] END OF REPORT
--- NOTE | 2019-08-10 10:40 | MORECARE ---
CASE MANAGEMENT DISCHARGE SUMMARY PATIENT: CATHY VACA UNIT: [id number] ADM DATE: 08/05/19 AGE: 58 : 56 SEX: M ROOM/BED: D.2205 AUTHOR: LORRIE BLAKE PHYSICIAN: REFERRING PHYSICIAN: GIGI PLATT MD DATE OF SERVICE: 08/10/19 Discharge Plan Patient Name: CATHY VACA Facility: [facility]:[place] : 1960 Planned Disposition: Home Anticipated Discharge Date: 08/09/19 Discharge Date: 08/09/2019 Expected LOS: 4 Initial Reviewer: [email or web address] Initial Review Date: 08/05/2019 Generated: 08/10/19 11:39 am Comments DCP- Discharge Planning Updated by [email or web address]: Ryann Carrasco on 08/09/19 11:[address] DC IMM signed. CM met with patient regarding DC needs. PCP: Dr. Platt. Pharmacy: [facility]. : Chely Vaca #[phone], will transport home. Patient states he is independent with ADL's, 4 steps w/rails entering home. DME: [place]AP[place]. Denies need for HHS, Rehab, Skilled services. Denies being hospitalized within past 30 days and feels safe returning to his home with his . DCPIA - Discharge Planning Initial Assessment Updated by [email or web address]: Ryann Carrasco on 08/09/19 12:09 pm * Is the patient Alert and Oriented? Yes * How many steps to enter\exit or inside your home? 4 w/rails * PCP Dr. Platt * Pharmacy [facility] * Preadmission Environment Home with Family * ADLs Independent * Equipment CPAP * Other Equipment C-PAP [facility] * List name and contact numbers for known caregivers / representatives who currently or will assist patient after discharge: Chely christensen #[phone] * Verbal permission to speak to the caregivers and representatives has been obtained from the patient. Yes * Community resources currently utilized None * Please name any agencies selected above. NA * Additional services required to return to the preadmission environment? No * Can the patient safely return to the preadmission environment? Yes * Has this patient been hospitalized within the prior 30 days at any hospital? No Last DP export: 08/09/19 3:00 p Patient Name: CATHY VACA Page 25786 at 1040 All edits/amendments must be made on the electronic document DICTATION DATE: 08/10/19 103 HVAC SALES REPRESENTATIVE: KASSIDY 08/10/19 1039 RPT#: [id number] DC DATE:08/09/19 STATUS: DIS IN [facility] [address] [place] [address] END OF REPORT
== END 2019-08-09 11:59 | disposition home or self-care (01) | DRG 419 ==
LOC: D.ER 19:50 → D.MS 22:04
PROVIDERS: Family Medicine; Surgery; ADMIT Family Medicine; ATTEND Family Medicine
PROC: BF101ZZ Fluoroscopy of Bile Ducts using Low Osmolar Contrast (ICD-10-PCS; 2019-08-07)
PROC: 0FT44ZZ Resection of Gallbladder, Percutaneous Endoscopic Approach (ICD-10-PCS; principal; 2019-08-07 08:00)
PROC: 0DP64CZ Removal of Extraluminal Device from Stomach, Percutaneous Endoscopic Approach (ICD-10-PCS; 2019-08-07 08:00)
DX: K85.90 Acute pancreatitis without necrosis or infection, unspecified (principal); I10 Essential (primary) hypertension; M19.90 Unspecified osteoarthritis, unspecified site; G47.33 Obstructive sleep apnea (adult) (pediatric); G89.29 Other chronic pain; F41.8 Other specified anxiety disorders; F43.10 Post-traumatic stress disorder, unspecified

== ENCOUNTER 2020-07-25 05:50 | Day surgery (SDC) | payer MEDICARE, OTHER ==
[~2020-07-25] VITALS: Ht 185.4 cm; Wt 119.3 kg
[~2020-07-25 05:50] MED LIST changes: +HYDROCODON-ACE1 EA10 PO; +PAROXETINE HCL10 MG PO; +TOPROL XL25 MG PO
[2020-07-25 06:20] LABS: BASOPHILS 0.4 % (0-2); EOSINOPHILS 2.6 % (0-7); HEMATOCRIT 48.2 % (42.0-54.0); HEMOGLOBIN 16.2 g/dL (13.5-17.5); IMMATURE GRANULOCYTES 0.1 % (0-5); LYMPHOCYTE ABS# 2.06 10x3/uL (1.32-3.57); LYMPHOCYTES 29.9 % (15-50); MCH 29.7 pg (26.0-34.0); MCHC 33.6 g/dL (31.0-37.0); MCV 88.3 fL (80.0-100.0); MEAN PLATELET VOLUME 11.4 fL (7.4-10.4); MONOCYTES 5.5 % (2-11); NEUTROPHIL ABS# 4.24 10x3/uL (1.78-5.38); NEUTROPHILS 61.5 % (40-80); PLATELET COUNT 242 10x3/uL (130-400); RBC 5.46 10x6/uL (4.20-6.10); RDW 13.3 % (11.5-14.5); WBC 6.9 10x3/uL (4.8-10.8)
[2020-07-25 06:39] LABS: ALBUMIN 3.9 g/dL (3.4-5.0); ANION GAP 13.2 mmol/L (8-16); BILIRUBIN - TOTAL 0.48 mg/dL (0.2-1.3); CALCIUM 9.3 mg/dL (8.5-10.1); CARBON DIOXIDE 25.8 mmol/L (21.0-32.0); CREATININE - SERUM 1.2 mg/dL (0.6-1.3)
[2020-07-25 07:21] VITALS: BP 141/84; Ht 185.4 cm; Wt 119.3 kg
--- NOTE | 2020-07-25 13:56 | NUR ---
GAVE DC INSTRUCTIONS TO PT AND , VERBALIZED UNDERSTANDING 1417 INCISION UPPER MID ABD SEEPING, BANDAID CHANGED 1445 OPENED FLUIDS UP WITH APPROX 800ML IN BAG 1540 SCANNED BLADDER X3 SHOWING 291ML, BLADDER SOFT TO PALPATION, NO DISTENTION NOTED, NO DISCOMFORT VERBALIZED. GOWN CHANGED AND BANDAID CHANGED D/T SEEPING OF UPPER MID ABD INCISION. STILL UNABLE TO VOID 1640 CRACKERS, PB, TEA GIVEN PER PT REQUEST, 2ND BAG NS HUNG TO GRAVITY 17[address] PER DR ORDER, 1820 PT STATES HE URINATED, THIS NURSE CHANGED TOP ABD INCISION BANDAID-REPLACED IT WITH EYE PATCH AND PAPER TAPE. PIV DC'D, CATHETER INTACT, HELPING PATIENT TO GET DRESSED. 1840 PT LEAVING UNIT VIA WC ACCOMPANIED BY RENÉE AND PT . ALL BELONGINGS AND DC PAPERS IN HAND.
--- NOTE | 2020-07-28 15:10 | HP ---
PATIENT: CATHY VACA MEDICAL RECORD: [id number] ACCOUNT: [id number] [facility] [facility] 56 ADMISSION DATE: 07/25/20 PCP: GIGI PLATT MD HISTORY AND PHYSICAL EXAMINATION HISTORY OF PRESENT ILLNESS: I saw the patient in the outpatient department today. He has 2 different issues. He has an enlarged right inguinal lymph node. It is tender. It causes pain. The pain is actually decreased since I saw him in the office. I have personally reviewed the ultrasound images. One dimension of this lymph node is 33-mm. He will undergo an excisional biopsy. The risks, possible complications, and alternatives of the procedure were explained to the patient. He elects to proceed. The patient also has a ventral incisional hernia. I think this is at the site where tubing from his lap band exited the abdominal cavity to the subcutaneous port. We had planned repair of this laparoscopically. It does contain bowel. It is within a diastasis rectus. Specifically, I told him we would not be fixing the diastasis rectus, but we would fix the incisional hernia. The risks, possible complications, and alternatives of the procedure were explained to the patient. He elects to proceed. HOME MEDICATIONS: Please see the nursing list. ALLERGIES: Please see the nursing list. PHYSICAL EXAMINATION: GENERAL: The patient does not appear acutely ill. He does not appear chronically ill. VITAL SIGNS: Reviewed. EARS: External ears appear normal. EYES: Extraocular movements are intact. NECK: Trachea is midline. CHEST: No intercostal retractions. PULMONARY: Nonlabored. No stridor. ABDOMEN: Reducible incisional hernia. LYMPHATIC: Tender single right groin lymph node. IMPRESSION: 1. Reducible symptomatic ventral incisional hernia. 2. Symptomatic right groin lymph node. PLAN: Excisional biopsy, right groin lymph node. Laparoscopic incisional hernia repair with mesh, possible open procedure. TRANSINT:[id number] Voice Confirmation ID: [id number] DOCUMENT ID: [id number] HISTORY AND PHYSICAL [id number] CATHY VACA ROBERT MD at 0476 CC: [id number] DICTATION DATE: 07/25/20 0836 PRODUCTION AIDE: 07/25/20 0915 [facility] 07/25/20 [place] [id number] [place], [place] [id number]
--- NOTE | 2020-08-24 10:33 | OP ---
PATIENT NAME: CATHY VACA MEDICAL RECORD: [id number] LOCATION:D[facility] ADMISSION DATE: SURGEON: SHAHID DEE MD DATE OF OPERATION: 07/25/2020 PREOPERATIVE DIAGNOSIS: Symptomatic ventral incisional hernia. POSTOPERATIVE DIAGNOSIS: Symptomatic incarcerated ventral incisional hernia. PROCEDURE PERFORMED: Laparoscopic incarcerated ventral incisional hernia repair with Ventralight ST mesh utilizing the echo positioning system. SURGEON: Shahid Dee MD CONTRACTING OFFICER: None. BLOOD LOSS: Minimal. ANESTHESIA: General. COMPLICATIONS: None. The risks, possible complications, and alternatives to the procedure were explained to the patient. He elects to proceed. The discussion specifically included, but was not limited to, bleeding requiring emergency reoperation, infection as well as hernia recurrence. DESCRIPTION OF PROCEDURE: The patient was conveyed in the operating room electively on 07/25/2020. General anesthesia was induced by the anesthesia staff. The abdomen was sterilely prepped and draped. A small transverse incision was accomplished in the left upper quadrant. Veress needle was inserted through the incision into the peritoneal cavity. CO2 insufflation was begun. Through this incision, a 12-mm trocar was advanced. Under laparoscopic guidance, utilizing the laparoscopic television camera, a 5-mm trocar was inserted in the left side of the abdomen and two 5-mm trocars were inserted in the right side of the abdomen. During insertion of the Veress needle and all trocars, there appeared to have been no injury to the bowels, any intraperitoneal or retroperitoneal structures. The incarcerated contents included omentum only. I began to pull down with my laparoscopic grasper and dissect the omentum out of the hernia defect with the Harmonic scalpel. Once all the incarcerated omentum had been removed, I then took down the falciform ligament with the laparoscopic Harmonic scalpel. Some preperitoneal adipose tissue was excised with the Harmonic scalpel. A previous circular flap was created with the Harmonic scalpel. At no time was there any apparent bladder injury. I then measured the hernia defect. I brought an appropriately sized sterile mesh onto the field and hydrated it. It was then rolled up and advanced down through the 12-mm trocar. A skin incision was accomplished over the hernia defect. Through the skin incision, I advanced a laparoscopic suture passer. I grabbed the tag of the positioning system and pulled it out through the skin with the laparoscopic suture passer. I then cut the tubing. It was then applied in the inflation device. I then inflated the positioning system in the proper orientation with the rough side of the mesh toward the anterior abdominal OPERATIVE REPORT [id number] CATHY VACA FERNANDO wall and the slick side toward the bowels. I then used a tacking device to tack circumferentially around the mesh to the anterior abdominal wall. Herniorrhaphy was then accomplished with circumferential tacking of the SorbaFix device. The echo positioning system was then removed in its entirety. I was very satisfied with the way the hernia repair looked. There was no bleeding even at low pressure at 8. A Brando-Chris suture closure device and 0 Vicryl suture was used to close the muscle in the left upper quadrant at the 12-mm trocar site. The rest of the trocars were removed. A small skin incision overlying the hernia defect was closed with a single 4-0 Vicryl Rapide suture. All the skin incisions were closed with interrupted intracuticular 3-0 Vicryls. Benzoin and Steri-Strips were applied. The patient was then extubated and conveyed to post-anesthesia care unit where he was in stable condition. TRANSINT:[id number] Voice Confirmation ID: [id number] DOCUMENT ID: [id number] SHAHID DEE MD at 1033 CC: [id number] DICTATION DATE: 08/23/201807 VEGETABLE TRIMMER: 08/24/20 0223 [facility] 07/25/20 [place] [id number] [place] [id number]
== END 2020-07-25 18:40 | disposition home or self-care (01) ==
LOC: D.OPS 05:50
PROVIDERS: ATTEND Surgery
DX: K43.6 Other and unspecified ventral hernia with obstruction, without gangrene (principal)